=== PATIENT | female | born 1990 | race Caucasian/White ===

== ENCOUNTER 2018-03-03 20:43 | Emergency (ER) | payer OTHER ==
[2018-03-03 21:02] VITALS: BP 162/101
--- NOTE | 2018-03-03 21:35 | ED GENERAL ADULT ---
History of Present Illness General Chief Complaint: Skin Rash/ Abcess Stated Complaint: RASH ALL OVER, SAW MD FEW DAYS AGO, NOW WORSE Source: patient Exam Limitations: no limitations Vital Signs & Intake/Output Vital Signs & Intake/Output Vital Signs Date Time Temp Pulse Resp B/P B/P Pulse O2 O2 Flow FiO2 Mean Ox Delivery Rate 03/03 2102 97.7 92 19 162/101 96 Room Air Allergies Uncoded Allergies: Allergy Other N Med Allergies WHEAT AND OATS, Reconcile Medications Hydrocortisone (Ala-Mike) 2.5 % CREAM..G. 1 SHANON TOP TID PRN ITCHING 5 DAYS MAX - APPLY TO AFFECTED AREA Permethrin 5 % CREAM..G. 1 SHANON TOP ONCE SCABIES massage into skin from head to soles of feet one time, leave on for 8-14 hours then remove,REPEAT IN 1 WEEK Triage Note: PT TO ED WITH C/O GENERALIZED RASH TO ENTIRE BODY X 3 WEEKS. SEEN BY PCP LAST SATURDAY AND REFERRED TO BASEBALL COACH. REPORTS SHE IS TOO NERVOUS TO WAIT TO BE SEEN BY BASEBALL COACH. TAKING BENADRYL FOR PRURITIS AND USING HYDROCORTISONE CREAM W/O RELIEF. Triage Nurses Notes Reviewed? yes Onset: Gradual Duration: week(s):, waxing and waning Timing: recent history Injury Environment: home Severity: moderate Modifying Factors: Worsens With: other (worse w/itching). Associated Symptoms: red rash : No Patient currently breastfeeds: No HPI: 27-year-old woman presents with 3 weeks of extremely itchy red rash, "breaks out all over my body." She is tried Benadryl around the clock and topical over-the- counter hydrocortisone cream without significant improvement. She states, "there'll be these red blotches or bumps that breakout along my skin, trunk on my arms. They go away but then they come back in another part of my body." She states that she's been sleeping on her sofa. She has an indoor house cat but no other pets. She does not work with children. She is otherwise well and has no other concerns. Past History Travel History Traveled to [place] past 21 day No Medical History Any Pertinent Medical History? see below for history EENT: KERTACONUS Tetanus Vaccine: Surgical History Surgical History: none Psychosocial History What is your primary language Gambian Tobacco Use: Current Daily Use Daily Tobacco Use Amount/Type: => 5 Cigarettes daily Family History Hx Contributory? No Review of Systems Review of Systems Constitutional: Reports: no symptoms. EENTM: Reports: no symptoms. Respiratory: Reports: no symptoms. Cardiovascular: Reports: no symptoms. GI: Reports: no symptoms. Genitourinary: Reports: no symptoms. Musculoskeletal: Reports: no symptoms. Skin: Reports: no symptoms. Neurological/Psychological: Reports: no symptoms. Hematologic/Endocrine: Reports: no symptoms. Immunologic/Allergic: Reports: no symptoms. All Other Systems: Reviewed and Negative Physical Exam Physical Exam General Appearance: well developed/nourished, no apparent distress Comments: Review of Systems - except as otherwise noted in HPI Physical Exam Physical Exam General Appearance: well developed/nourished, no apparent distress Head: atraumatic, normal appearance Eyes: Bilateral: normal appearance. Ears, Nose, Throat: normal pharynx, normal ENT inspection Neck: normal inspection, supple, full range of motion Respiratory: normal breath sounds, chest non-tender, no respiratory distress, quiet respiration, lungs clear Cardiovascular: regular rate/rhythm Gastrointestinal: normal bowel sounds, soft, non-tender, no organomegaly Back: normal inspection, normal range of motion Extremities: normal inspection, normal capillary refill, normal range of motion, no edema Neurologic/Psych: no motor/sensory deficits, awake, alert, oriented x 3 Skin: intact, normal color, warm/dry, raised papular erythematous rash on arms and along waistband, pruritic, not urticarial. Core Measures ACS in differential dx? No CVA/TIA Diagnosis: No Sepsis Present: No Sepsis Focused Exam Completed? No Progress Differential Diagnoses I considered the following diagnoses in my evaluation of the patient: bed bugs vs scabies vs contact derm vs other. Plan of Care: see below Initial ED EKG: none Departure Departure Disposition: HOME OR SELF CARE Condition: Stable Clinical Impression Primary Impression: Scabies Secondary Impressions: Rash Referrals: Nai SERNA,Man King (PCP/Family) Departure Forms: Customer Survey General Discharge Information Prescriptions: Current Visit Scripts Permethrin 1 SHANON TOP ONCE #60 GM Ref 2 massage into skin from head to soles of feet one time, leave on for 8-14 hours then remove,REPEAT IN 1 WEEK Hydrocortisone (Ala-Mike) 1 SHANON TOP TID PRN ITCHING #1 TUBE Ref 1 5 DAYS MAX - APPLY TO AFFECTED AREA Comments discussed at length... gave rx for permethrin and hydrocortisone... close follow up advised. Critical Care Note Critical Care Note Critical Care Time: non-applicable
[2018-03-03] MEDS ORDERED: PERMETHRIN60 GM TOP (21:42)
[2018-03-03] MEDS ORDERED: ALA-CORT30 GM TOP (21:42)
== END 2018-03-03 21:47 ==
LOC: ERH 20:43
DX: B86 Scabies (principal)